=== PATIENT | female | born 1960 | race Caucasian/White ===

== ENCOUNTER → 2017-02-21 | Outpatient (CLI) | payer OTHER | END | disposition home or self-care (01) | LOC: RAD.S 10:17 | DX: Z12.31 Encounter for screening mammogram for malignant neoplasm of breast (principal) ==

== ENCOUNTER 2017-03-27 05:47 | Day surgery (SDC) | payer OTHER ==
--- NOTE | 2017-04-07 20:50 | OR ---
ADMIT: 03/27/2017 RM/LOC: [facility] MR#: [id number] [address] [address] GLO CHRISTIAN Paola [address] [place] [address] Operative/Delivery Room Report SEX: F AGE: 57 : 1960 SURGERY DATE: 03/27/2017 SURGEON: Amrit Bee MD PROCEDURES: Complete colonoscopy with hot biopsy polypectomy. PREOPERATIVE DIAGNOSIS: Screening colonoscopy. POSTOPERATIVE DIAGNOSIS: Proximal ascending colon polyp, thickened fold, 8 mm polyp at 30 cm of colon and a small rectal polyp. COMPLICATIONS: None immediate. INDICATION FOR PROCEDURE: She is due for screening colonoscopy. She is not having symptoms, therefore we are proceeding with screening colonoscopy. DESCRIPTION OF PROCEDURE: After the patient was informed of the risks, benefits, and alternatives of the procedure, informed consent was obtained. She was taken back to GI lab and placed in left lateral decubitus position. Sedation was provided by Sean Lewis MD, anesthesiologist. Once appropriately sedated, the rectal exam revealed good sphincter tone without palpable masses or lesion. Video colonoscope was introduced through the rectum and passed through the cecum without difficulty. Image 1 and 3 of 6 does reveal a cecal areas, this was confirmed with ballotment and usual landmarks. Positional maneuvers of the patient were required to get to the cecum. Scope was then slowly removed with visualization of the remaining colonic mucosa. Prep was adequate. There was an approximately 3 mm polyp in the proximal ascending colon as seen in image 2 of 6, it was removed with cold biopsy forceps. There was also a thickened fold in the ascending colon, as seen in image 4 of 6 which was biopsied with cold biopsy forceps. At approximately 30 cm, there was an 8-mm polyp as seen in image 5 of 6, it was biopsied with cold biopsy forceps, removed with a snare, and then the base was cauterized. Prep was adequate. There were no other abnormalities noted. Once in the rectal vault, the scope was retroflexed revealing a normal-appearing rectoanal junction as revealed in image 6 of 6. Scope was then straightened and procedure was terminated. She tolerated without any immediate complications, transferred to recovery room in stable condition. PLAN: She will follow up with Rosita Boogie PA-C as needed. Follow up with me in 1 week to go over biopsy results. Sooner if signs or symptoms arise. Amrit Bee MD/ marilin JOB #: [id number] CC: Amrit Bee, Attending Physician ADMIT: 03/27/2017 RM/LOC: [facility] MR#: [id number] [address] [address] CHRISTIAN CODY [address] [place] [address] Operative/Delivery Room Report SEX: F AGE: 57 : 1960 Rosita Boogie, Family Physician
== END 2017-03-27 10:23 | disposition home or self-care (01) ==
LOC: SSS 05:47
PROC: 0DBK8ZX Excision of Ascending Colon, Via Natural or Artificial Opening Endoscopic, Diagnostic (ICD-10-PCS; principal; 2017-03-27)
PROC: 0DBP8ZX Excision of Rectum, Via Natural or Artificial Opening Endoscopic, Diagnostic (ICD-10-PCS; principal; 2017-03-27)
DX: Z12.11 Encounter for screening for malignant neoplasm of colon (principal); D12.2 Benign neoplasm of ascending colon; D12.6 Benign neoplasm of colon, unspecified; K62.1 Rectal polyp; I10 Essential (primary) hypertension; E66.9 Obesity, unspecified; K21.9 Gastro-esophageal reflux disease without esophagitis; E11.9 Type 2 diabetes mellitus without complications; E03.9 Hypothyroidism, unspecified; Z79.899 Other long term (current) drug therapy; Z98.890 Other specified postprocedural states